=== PATIENT | male | born 1990 | race Hispanic/Latino ===

== ENCOUNTER 2019-01-15 22:59 | Emergency (ER) | payer SELFPAY ==
--- NOTE | 2019-01-15 23:35 | RAD ---
EXAM: Fourth finger right hand: 3 views INDICATIONS: Injury COMPARISON: None. FINDINGS: No osseous abnormality. IMPRESSION: No acute finding
[2019-01-16] MEDS ORDERED: Adacel (T-DAP) 0.5 ML SYRINGE ONE (00:23)
[2019-01-16] MEDS ORDERED: Lidocaine 4% Cream 5 GM TUBE w/ Tegaderm ONE (00:29)
[2019-01-16] MEDS ORDERED: CEFAZOLIN 1 GM VIAL ONE (01:00)
[2019-01-16] MEDS ORDERED: Sterile Water 10 ML ONE (01:03)
== END 2019-01-16 02:09 | disposition home or self-care (01) ==
LOC: ERS 22:59
DX: S56.425A Laceration of extensor muscle, fascia and tendon of right ring finger at forearm level, initial encounter (principal); Z23 Encounter for immunization; W26.8XXA Contact with other sharp object(s), not elsewhere classified, initial encounter
CPT/HCPCS: 12001; 90471; 90715; 96372; J0690

== ENCOUNTER 2023-03-07 01:43 | Emergency (ER) | payer SELFPAY ==
[2023-03-07] MEDS ORDERED: Ondansetron PF 4 MG/2 ML Vial ONE (01:57)
[2023-03-07] MEDS ORDERED: Mag-Al 1200 mg/1200 mg/30 ML UDCUP ONE (01:57)
[2023-03-07] MEDS ORDERED: fentaNYL 50 mcg/mL 1 mL Vial ONE ×2 (01:57→02:15)
[2023-03-07 02:01] LABS: #Basophils 0.1 thou/uL (0.0-0.2); #Eosinphils 0.7 thou/uL (0.0-0.7); #Monocytes 1.3 thou/uL (0.11-0.59); #Neutrophils 14.1 thou/uL (1.40-6.50); %Basophils 0.3 % (0.0-1.0); %Eosinophils 3.2 % (0.0-10.0); %Neutrophils 66.9 % (42.0-75.0); Hematocrit 42.9 % (42.0-52.0); Hemoglobin 14.7 g/dL (14.0-18.0); Mean Corpuscular HGB CONC 34.3 g/dL (32.0-36.0); Mean Corpuscular Hemoglobin 33.2 pg (27.0-31.0); Mean Corpuscular Volume 96.8 fl (78.0-98.0); Mean Platelet Volume 9.9 fL (7.4-10.4); Platelet Count 363 10x3/uL (130-400); RBC Distribution Width 12.2 % (11.5-14.5); Red Blood Cell (RBC) Count 4.43 mill/uL (4.70-6.10); White Blood Cell (WBC) Count 21.1 10x3/uL (4.8-10.8)
[2023-03-07 02:30] LABS: ALT (SGPT) 64 U/L (8-55); AST (SGOT) 38 U/L (5-34); Albumin 4.6 g/dL (3.5-5.0); Alkaline Phosphatase 123 U/L (40-110); Anion Gap 13 mmol/L (10-20); BUN (Urea Nitrogen) 9 mg/dL (8.9-20.6); Bilirubin, Total 0.3 mg/dL (0.2-1.2); Calc. Creatinine Clearance 0 mL/min (70-130); Calcium 9.1 mg/dL (7.8-10.44); Carbon Dioxide 25 mmol/L (22-29); Chloride 104 mmol/L (98-107); Estimated GFR 122; Globulin 3.6 g/dL (2.4-3.5); Glucose 125 mg/dL (70-105); Lipase 32 U/L (8-78); Potassium 3.5 mmol/L (3.5-5.1); Protein, Total 8.2 g/dL (6.0-8.3); Sodium 138 mmol/L (136-145)
[2023-03-07 02:33] LABS: Troponin I Less than 0.010 ng/mL (< 0.028)
[2023-03-07] MEDS ORDERED: Pantoprazole 40 MG VIAL ONE (02:47)
[2023-03-07] MEDS ORDERED: Iopamidol-370 76% 500 ML MDV (1 ML CHARGE) ONE (10:24)
== END 2023-03-07 05:34 | disposition home or self-care (01) ==
LOC: ERS 01:43
DX: J21.9 Acute bronchiolitis, unspecified (principal)
CPT/HCPCS: 71045; 71275; 74177; 80053; 83690; 83880; 84484; 85025; 85379; 93005; 96361; 96374; 96375; C9113; J2405; J3010; Q9967